=== PATIENT | female | born 1970 | race Caucasian/White ===

== ENCOUNTER 2018-07-22 14:05 | Emergency (ER) | payer MEDICAID ==
[2018-07-22] MEDS: SOD CHLORIDE 0.9% 1,000 ML IV (14:49)
[2018-07-22] MEDS: METHYLPREDNISOLONE 125 MG INJ IV (14:49)
[2018-07-22] MEDS: DIPHENHYDRAMINE 50 MG INJ IV (14:49)
[2018-07-22] MEDS: ONDANSETRON 4 MG INJ IV (15:06)
== END 2018-07-22 17:23 | disposition home or self-care (01) ==
LOC: E/R 14:05
DX: R11.2 Nausea with vomiting, unspecified (principal)
CPT/HCPCS: 96361; 96374; 96375; 99284-25